=== PATIENT | male | born 1995 | race Caucasian/White ===

== ENCOUNTER 2017-10-17 04:05 | Emergency (ER) | payer OTHER ==
[~2017-10-17] VITALS: Ht 165.1 cm; Wt 68.0 kg
--- NOTE | 2017-10-17 04:05 | NUR ---
BIBA TO ER BED 1
--- NOTE | 2017-10-17 04:07 | NUR ---
[employer] AT BEDSIDE.
[2017-10-17] MEDS ORDERED: NACL 0.9% 1,000 ML IV ONE (04:15)
[2017-10-17] MEDS ORDERED: HALOPERIDOL IM 5 MG/ML VIAL IM ONE (04:15)
[2017-10-17] MEDS ORDERED: LORazepam 2 MG/ML VIAL IM ONE (04:15)
[2017-10-17] MEDS ORDERED: HALOPERIDOL IM 5 MG/ML VIAL ONE (04:15)
[2017-10-17] MEDS ORDERED: LORazepam 2 MG/ML VIAL ONE (04:16)
[2017-10-17 04:24] VITALS: BP 133/45
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
[2017-10-17 05:00] LABS: BARBITURATE, URINE NEG. ng/ml (NEG <=200); BENZODIAZEPINE, URINE NEG. ng/mL (NEG <=200); CANNABINOID, URINE POS. ng/mL (NEG <=50); COCAINE, URINE POS. ng/mL (NEG <=300); OPIATE, URINE NEG. ng/mL (NEG <=2000); PHENCYCLIDINE SCREEN,URINE NEG. ng/mL (NEG <=25)
--- NOTE | 2017-10-17 05:03 | NUR ---
PT.REST IN BED COMFORTABLY, NO EPISODE OF RESTLESS NOR COMBATIVE. RELEASE RESTRAINTS. WILL CONTINUE TO MONITOR.
--- NOTE | 2017-10-17 06:42 | NUR ---
Patient appears to be resting comfortably in bed. Vital Signs within normal limits. Respirations even and unlabored.
--- NOTE | 2017-10-17 07:18 | NUR ---
REPORT GIVEN TO JACKSON JIANG.PT. RESTING IN BED, NO S/SX OF DISTRESS.
--- NOTE | 2017-10-17 07:21 | NUR ---
REPORT RECEIVED FROM JACKSON TAVAREZ.
--- NOTE | 2017-10-17 07:35 | NUR ---
patient asleep in bed, attempted to wake patient up. patient sleepy at this time. will continue to monitor. officer at bedside.
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
--- NOTE | 2017-10-17 08:25 | NUR ---
will take patient on road test once security brings personal clothing. patient stable.
--- NOTE | 2017-10-17 08:35 | NUR ---
discharge delayed at this time due to recival of clothing from securiity. will follow up.
--- NOTE | 2017-10-17 08:55 | NUR ---
assisted patient with putting his pants and shoes on, arin [email or web address]. secondary special education teacher on scene in preparation for discharge.tal
[2017-10-17 09:01] VITALS: BP 102/45
--- NOTE | 2017-10-17 09:01 | NUR ---
Patient discharged with v/s stable. Attempted to provide written and verbal after care instructions to patient, declines education provided. Discharge paperwork signed by two nurses. ID band removed. Patient in police custody. All questions addressed prior to discharge. Advised to follow up with PMD. patient left ambulatory and in stable condition.
== END 2017-10-17 09:01 | disposition home or self-care (01) ==
LOC: MED 04:05
DX: F10.129 Alcohol abuse with intoxication, unspecified (principal); F14.10 Cocaine abuse, uncomplicated
CPT/HCPCS: 36415; 80305; 82948; 96372; 99284; C1758; J1630; J2060; J7030

== ENCOUNTER 2022-11-05 22:08 | Emergency (ER) | payer OTHER ==
[~2022-11-05] VITALS: Ht 165.1 cm; Wt 68.0 kg
[2022-11-05 22:08] VITALS: BP 138/75
--- NOTE | 2022-11-05 22:10 | NUR ---
2204-- PT W/C ASSISTED TO BED #5
--- NOTE | 2022-11-05 22:11 | NUR ---
PT TOOK SHROOM AROUND 5 PM AND BEEN THROWING UP AND IT HAS NOT BEEN EQATING SINCE THEN. PT IS ALERT AND ORIENTED X 4.
[2022-11-05] MEDS ORDERED: ONDANSETRON 4 MG/2 ML VIAL IVP ONE (22:15)
[2022-11-05] MEDS ORDERED: NACL 0.9% 1,000 ML IV ONE (22:15)
--- NOTE | 2022-11-05 22:24 | NUR ---
PERFORME EKG AT BED TIME
[2022-11-05 22:28] LABS: BASOPHILS # (AUTO) 0.1 K/uL (0.00-0.22); BASOPHILS % (AUTO) 0.4 % (0.0-2.0); EOSINOPHILS % (AUTO) 0.1 % (0.0-4.0); HEMATOCRIT 48.6 % (36-52); HEMOGLOBIN 16.5 g/dL (12.0-18.0); LYMPHOCYTES # (AUTO) 1.9 K/uL (2.0-11.5); LYMPHOCYTES % (AUTO) 11.7 % (20.5-51.1); MEAN CORPUSCULAR HEMOGLOBIN 28 pg (27-31); MEAN CORPUSCULAR HGB CONC 34 g/dL (33-37); MEAN CORPUSCULAR VOLUME 83.3 fL (80-94); MONOCYTES # (AUTO) 0.5 K/uL (0.8-1.0); NEUTROPHILS % (AUTO) 84.8 % (42.2-75.2); PLATELET COUNT (AUTO) 353 K/uL (140-450); RED BLOOD CELL COUNT(AUTO) 5.83 MIL/uL (4.20-6.10); RED CELL DISTRIBUTION WIDTH 12.9 % (11.6-13.7); WHITE BLOOD COUNT (AUTO) 16.5 K/uL (4.8-10.8)
[2022-11-05 22:52] LABS: ANION GAP 22.9 (8-16); ASPARTATE AMINOTRANSFERASE 27 U/L (15-37); CARBON DIOXIDE 19.7 mmol/L (21-32); CHLORIDE 97 mmol/L (98-107); CREATININE 1.3 mg/dL (0.6-1.3); GFR ARICAN-AMERICAN 86 mL/min (>90); GLUCOSE 107 mg/dL (74-106); POTASSIUM 3.6 mmol/L (3.5-5.1); SODIUM SERUM 136 mmol/L (136-145); TOTAL BILIRUBIN 1.1 mg/dL (0.0-1.0); UREA NITROGEN, BLOOD 12 mg/dL (7-18)
[2022-11-05 22:55] LABS: ACETAMINOPHEN < 0.5 ug/ml (10-30); SALICYLATE < 2.8 mg/dL (2.8-20.0)
[2022-11-06] MEDS ORDERED: KETOROLAC 15 MG/ML VIAL IVP ONE (00:05)
[2022-11-06 01:02] LABS: BARBITURATE, URINE NEGATIVE ng/ml (NEG <=200); BENZODIAZEPINE, URINE NEGATIVE ng/mL (NEG <=200); CANNABINOID, URINE NEGATIVE ng/mL (NEG <=50); COCAINE, URINE NEGATIVE ng/mL (NEG <=300); OPIATE, URINE NEGATIVE ng/mL (NEG <=2000); PHENCYCLIDINE SCREEN,URINE NEGATIVE ng/mL (NEG <=25)
[2022-11-06 03:36] VITALS: BP 138/75
--- NOTE | 2022-11-06 03:38 | NUR ---
Patient discharged with v/s stable. Written and verbal after care instructions given and explained. Patient verbalized understanding. Ambulatory with steady gait. All questions addressed prior to discharge. Advised to follow up with PMD. pt left with his belonigns.
== END 2022-11-06 03:38 | disposition home or self-care (01) ==
LOC: MED 22:08
DX: F16.120 Hallucinogen abuse with intoxication, uncomplicated (principal)
CPT/HCPCS: 36415; 71045; 80053; 80305; 82550; 85025; 93005; 96361; 96374; 96375; 99285; G0480; G0482; J1885; J2405; J7030

== ENCOUNTER 2023-07-15 21:52 | Emergency (ER) | payer OTHER ==
[~2023-07-15] VITALS: Ht 165.1 cm; Wt 52.2 kg
[2023-07-15 22:00] VITALS: BP 138/90; PULSE 75; RESP 18; TEMP 98.2; O2SAT 98
== END 2023-07-16 01:36 | disposition home or self-care (01) ==
LOC: MED 21:52
DX: H57.89 Other specified disorders of eye and adnexa (principal)
CPT/HCPCS: 99283

== ENCOUNTER 2023-07-26 01:39 | Emergency (ER) | payer SELFPAY ==
[~2023-07-26] VITALS: Ht 165.1 cm; Wt 52.2 kg
[2023-07-26 01:44] VITALS: BP 128/71; PULSE 83; RESP 16; TEMP 98.2; O2SAT 98
[2023-07-26 02:30] VITALS: BP 128/71; PULSE 83; RESP 16; TEMP 98.2; O2SAT 98
== END 2023-07-26 02:30 ==
LOC: MED 01:39
DX: S09.90XA Unspecified injury of head, initial encounter (principal); T75.4XXA Electrocution, initial encounter; Y93.89 Activity, other specified; Y92.89 Other specified places as the place of occurrence of the external cause; Y99.8 Other external cause status
CPT/HCPCS: 99283